=== PATIENT | female | born 1940 | race Caucasian/White ===

== ENCOUNTER 2021-05-09 17:40 | Observation (INO) | payer MEDICARE, MEDICAID, SELFPAY ==
[2021-05-09] VITALS (11 sets, daily range): BP systolic 105–158; BP diastolic 54–73; PULSE 63–77; RESP 16–20; TEMP 36.5–36.9; O2SAT 92–100; BMI 25.7; BMI 22.0
--- NOTE | 2021-05-09 18:32 | HMH.EDGENADL ---
ED Disposition Clinical Impression: Weakness Pneumonia Qualifiers: Pneumonia type: due to unspecified organism Laterality: bilateral Lung location: unspecified part of lung Qualified Code(s): J18.9 - Pneumonia, unspecified organism Disposition: Admitted as Observation Condition on Discharge: Fair Referrals: Cory Garibay MD [Primary Care Provider] - - Critical Care Critical Care Time: No Attestation: On 05/09/21, the high probability of a clinically significant, sudden or life threatening deterioration of the following system(s) required my full and direct attention, intervention and personal management. The time I documented below is in addition to time spent performing reported procedures but includes the following listed in this critical care notation. Medical Decision Making - Medical Records Medical records reviewed: Yes: I reviewed the patient's medical records. MR Comment: Fax copies of emergency department record from [facility] reviewed. The patient had extensive work-up including CT scan of chest, head, and abdomen. Arterial blood gases. Standard laboratory work-up. CT scan of chest showed persistent extensive bilateral infiltrates, mildly improved from prior studies. Abdomen was unremarkable, possible enteritis. CT scan of head was nonacute. Laboratory work-up was unremarkable. WBC normal. Lactic acid normal. Discharged on doxycycline. - Stan Inquiry Pt receiving controlled substance: No Vital Signs: 05/09/21 17:42 05/09/21 18:30 Temperature 97.7 F Temperature Source Oral Pulse Rate 71 Pulse Rate [Right Radial] 76 Respiratory Rate 20 17 Blood Pressure 129/71 Blood Pressure [Right Arm] 125/70 Blood Pressure Mean 90 Blood Pressure Mean [Right Arm] 88 Blood Pressure Source [Right Arm] Automatic Cuff Blood Pressure Position [Right Arm] Sitting 02 Sat by Pulse Oximetry 92 L 100 Oxygen Delivery Method Room Air - Lab Data Lab Results 05/09/21 20:00: WBC 8.4, RBC 3.97 L, Hgb 11.8 L, Hct 37.6, MCV 94.7, MCH 29.7, MCHC 31.4 L, RDW 13.9, Plt Count 566 H, MPV 8.2, Neut % (Auto) 74.8, Lymph % (Auto) 18.0, [place] % (Auto) 4.7, Eos % (Auto) 1.8, Baso % (Auto) 0.7, Neut # (Auto) 6.3, Lymph # (Auto) 1.5, [place] # (Auto) 0.4, Eos # (Auto) 0.2, Baso # (Auto) 0.1 05/09/21 20:00: Sodium 143, Potassium 3.6, Chloride 101, Carbon Dioxide 35 H, Anion Gap 10.6, BUN 14, Creatinine 0.80, Estimated Creat Clear 46, Estimated GFR 69, Est GFR ( Amer) 83, Glucose 53 L, Calcium 8.8, Total Bilirubin 0.3, AST 39 H, ALT 23, Alkaline Phosphatase 111, Troponin I < 0.01, Total Protein 7.6, Albumin 4.1, Globulin 3.5 H, Albumin/Globulin Ratio 1.2 05/09/21 20:00: Lactate 0.7 Result diagrams: 05/09/21 20:00 05/09/21 20:00 Orders (Tests/Meds): ED MEDICATIONS Generic Name Dose Route Start Last Admin Trade Name Freq PRN Reason Stop Dose Admin Sodium Chloride 1,000 mls @ 100 mls/hr 05/09/21 20:45 Sod Chlor 0.9% 1000ml Bag IV 06/08/21 20:44 .Q10H CORINE Levofloxacin/Dextrose 750 mg in 150 mls @ 100 mls/hr 05/09/21 20:45 Levofloxacin 750mg/150ml Premix IV 05/23/21 20:44 Q24H CORINE ORDERS Category Date Time Status Rapid PCR Covid and Flu A/B Stat Lab 05/09/21 20:36 Ordered Troponin I Q3H Lab 05/09/21 23:00 Ordered Troponin I Q3H Lab 05/10/21 00:45 Ordered UA [Urinalysis and Microscopic] Stat Lab 05/09/21 20:24 Ordered Blood Culture Stat Micro 05/09/21 18:40 Ordered - ECG Data Tracing #1 EKG interpreted by Kwame Martin MD: Rhythm: sinus Rate: 83 [place]: normal Ectopy: none Conduction: normal ST Segment Changes: none T Wave Changes: none Q Waves: none No evidence of acute ischemia or injury - Physician Consults Physician Consulted: David Time: 20:34 Reason -: Admission Comment/Response: Agrees to admit the patient to the hospital. We discussed the patient's clinical information, including history, exam, laboratory and radiology
--- NOTE | 2021-05-09 18:41 | XR_ITS ---
PROCEDURE INFORMATION: Exam: XR Chest Exam date and time: 05/09/2021 6:41 PM Age: 80 years old Clinical indication: Cough and shortness of breath; Additional info: SOA, cough TECHNIQUE: Imaging protocol: XR of the chest. Views: 1 view. COMPARISON: ABDPELW/O CT ABD PELVIS W/O CONTRAST 03/21/2015 4:31 PM FINDINGS: Lungs: 1.7 cm nodule in the left upper lobe. Emphysema. Prominent interstitial markings most pronounced in the right lung could reflect interstitial pneumonia. Pleural spaces: Unremarkable. No pleural effusion. No pneumothorax. Heart/Mediastinum: Unremarkable. No cardiomegaly. Bones/joints: Unremarkable. IMPRESSION: 1.7 cm nodule in the left upper lobe. Recommend CT to further evaluate these findings. Prominent interstitial markings most pronounced in the right lung could reflect interstitial pneumonia.
--- NOTE | 2021-05-09 19:51 | PC.NURSE ---
attempted multiple times to obtain blood via iv venipuncture. 24 g placed to right hand.
--- NOTE | 2021-05-09 19:56 | ECG_ITS ---
APPROVED REPORT Exam: Resting ECG HR:83 bpm ECG Measurements Heart Rate 83 AXES NM 122 P 66 QRSd 74 QRS 80 QT 384 T 74 QTc 451 Conclusion Normal sinus rhythm Normal ECG Electronically signed by : Greyson Bishop MD 05/10/2021 10:52:37
[2021-05-09 20:12] LABS: Basophils # 0.1 K/mm3 (0-0.2); Basophils % 0.7 % (0.1-2.0); Eosinophils # 0.2 K/mm3 (0.0-0.4); Eosinophils % 1.8 % (0.1-12.0); Hematocrit 37.6 % (37.0-47.0); Hemoglobin 11.8 g/dL (12.2-16.2); Lymphocytes # 1.5 K/mm3 (0.7-4.5); Mean Corpuscular HGB Conc 31.4 g/dL (31.8-35.4); Mean Corpuscular Hemoglobin 29.7 pg (27.0-31.2); Mean Corpuscular Volume 94.7 fl (81-99); Mean Platelet Volume 8.2 fl (7.4-10.4); Monocytes # 0.4 K/mm3 (0.1-1.0); Monocytes % 4.7 % (1.7-9.3); Neutrophils # 6.3 K/mm3 (1.8-7.8); Neutrophils % 74.8 % (37.0-80.0); Platelet Count 566 K/mm3 (142-424); Red Blood Count 3.97 M/mm3 (4.20-5.40); Red Cell Distribution Width 13.9 % (11.5-17.5); White Blood Count 8.4 K/mm3 (4.8-10.8)
[2021-05-09 20:22] LABS: Lactic Acid 0.7 mmol/L (0.7-2.1)
[2021-05-09 20:23] LABS: Alanine Aminotransferase 23 U/L (12-78); Albumin Level 4.1 g/dl (3.5-5.0); Albumin/Globulin Ratio 1.2 (1.1-1.8); Alkaline Phosphatase 111 U/L (38-126); Anion Gap 10.6 mEq/L (5-15); Aspartate Amino Transferase 39 U/L (14-36); Bilirubin,Total 0.3 mg/dl (0.2-1.3); Blood Urea Nitrogen 14 mg/dl (7-17); Calcium 8.8 mg/dl (8.4-10.2); Carbon Dioxide 35 mmol/L (22.0-30.0); Chloride 101 mmol/L (98-107); Creatinine Clearance Estimated 46 mL/min (50-200); Estimated Glomerular Filt Rate 69 ml/min (>60); GFR (African American) 83 ML/MIN (>60); Globulin 3.5 g/dL (1.3-3.2); Glucose 53 mg/dl (74-100); Potassium 3.6 mmoL/L (3.5-5.1); Sodium 143 mmol/L (136-145); Total Protein,Serum 7.6 g/dl (6.3-8.2)
[2021-05-09 20:35] LABS: Troponin I < 0.01 ng/ml (0.00-0.034)
--- NOTE | 2021-05-09 20:35 | PC.NURSE ---
call placed to [facility] for bed assignment. dta placed. was advised would be contacted back due to floor status being busy
[2021-05-09 21:00] LABS: Coronavirus 19, PCR Not Detected (NotDetected); Influenza A, PCR Not Detected (NotDetected); Influenza B, PCR Not Detected (NotDetected)
[2021-05-09 21:02] LABS: Microscopic, Urine URINE MICROSCOPIC (MICROSCOPIC)
[2021-05-09 21:03] LABS: Appearance,Urine CLEAR (Clear); Bilirubin,Urine Negative (Negative); Blood, Urine Negative (Negative); Color,Urine YELLOW (Yellow); Glucose,Urine (UA) Negative (Negative); Ketones,Urine Negative (Negative); Leukocyte Esterase,Urine Negative (Negative); Nitrate,Urine Negative (Negative); Protein,Urine Negative (Negative); Urobilinogen,Urine 0.2 EU/dl (0.2)
--- NOTE | 2021-05-09 21:15 | PC.NURSE ---
pt's daughter had to leave, she left her phone number as she is the emergency contact. Zeynep Guzman: [phone]
--- NOTE | 2021-05-09 21:18 | PC.NURSE ---
received bed assignment via [facility]; call placed to sacha in registration at this time.
[2021-05-09 21:23] LABS: Bacteria,Urine Trace /lpf; Squamous Epithelial Cell,Urine Occasional #/hpf (0-5); WBC,Urine Occasional #/hpf (0-3)
--- NOTE | 2021-05-09 21:23 | PC.NURSE ---
Pt's labs revealed a 53 BG. FS was 58. Pt is A&O and able to tolerated oral intake. Pt given 2 cups of OJ and PB crackers.
--- NOTE | 2021-05-09 21:54 | PC.NURSE ---
recheck FS was 106
--- NOTE | 2021-05-09 21:56 | PC.NURSE ---
PT ARRIVED TO FLOOR VIA W/C FROM ED W/STAFF AT [id number]
[2021-05-09 21:58] LABS: POC Glucose,Bedside 58 (70-110)
[2021-05-09 21:58] LABS: POC Glucose,Bedside 106 (70-110)
[2021-05-09 23:57] LABS: Troponin I < 0.01 ng/ml (0.00-0.034)
[2021-05-10] VITALS (7 sets, daily range): BP systolic 104–129; BP diastolic 37–64; PULSE 50–70; RESP 14–17; TEMP 36.4–37.1; O2SAT 90–100; BMI 22.0
[2021-05-10 03:26] LABS: Troponin I < 0.01 ng/ml (0.00-0.034)
[2021-05-10 05:56] LABS: Glucose,Random 38 mg/dL (74-100)
--- NOTE | 2021-05-10 06:11 | PC.NURSE ---
FSBS 41, stat glucose lab draw 38. gave pt orange juice and peanut butter and crackers. notified MD, orders received for 1/2 amp D50 and change IVF's to D5NS
[2021-05-10 06:51] LABS: POC Glucose,Bedside 80 (70-110)
--- NOTE | 2021-05-10 10:00 | HMH.HP ---
*Admission Date: 05/10/21 *History of present illness: History obtained from the patient's daughter. She states that the patient was admitted to [facility] from 04/29/2021 through 05/05/2021. Daughter states she still was not well when she came home. She has been extremely weak ever since discharge. She still has shortness of breath. She took her to her primary care provider in [facility] for post admission follow-up. Primary care nurse practitioner heard crackles in the lungs and sent her to [facility] emergency department by EMS. Daughter states that the nurse practitioner wanted her admitted, but after evaluation in the emergency department in [facility] she was discharged home despite daughter requesting admission. Daughter therefore brings her to our emergency department for a second opinion . Daughter is mostly concerned about how weak the patient is. Daughter states that patient still has a little coughing. Denies fever. No vomiting. She thinks she might of had a little diarrhea. She has had chronic abdominal pain for over a year. She is a former smoker, quit smoking about 6 years ago. She has COPD and is on oxygen at home. She has nebulizer treatments, but has not used any since discharge because she is stubborn . Daughter says that the patient also had Covid about 3 months ago. Daughter says that extended-care facility rehab was discussed at the time of hospital discharge on May 05, but she and patient declined. Daughter states she is there at all times to help watch the patient and since discharge they also have home health care. However, despite all this, daughter still feels that she is not doing well. Fax copies of emergency department record from [facility] reviewed. The patient had extensive work-up including CT scan of chest, head, and abdomen. Arterial blood gases. Standard laboratory work-up. CT scan of chest showed persistent extensive bilateral infiltrates, mildly improved from prior studies. Abdomen was unremarkable, possible enteritis. CT scan of head was nonacute. Laboratory work-up was unremarkable. WBC normal. Lactic acid normal. Discharged on doxycycline. (above as per ER physician) [facility] History I have reviewed the patient's past medical history: Yes Medical History: Reports:: Chronic Obstructive Pulmonary Disease (COPD), Diabetes Mellitus Type 2 *Have you ever received a pneumonia vaccine?: No *Have you received a flu vaccine this season?: No Other Surgeries: Yes: Cholecystectomy, Hysterectomy-Total - *Social History Smoking Status: Former smoker Alcohol Intake: never *Occupational Status:: other *Travel in the last 8 weeks: None Family Hx:: Unable to obtain Review of Systems - Review of Systems Review of systems:: unable to obtain - *Neurologic Reports weakness Meds Home Medications Medication Instructions Recorded Confirmed Type Atorvastatin Calcium [Lipitor 40mg 40 mg PO HS 05/09/21 05/09/21 History Tab] Budesonide/Formoterol Fumarate 2 puffs IH BID 05/09/21 05/09/21 History [Symbicort 160-4.5 Mcg Inhaler] Clopidogrel Bisulfate [Clopidogrel 75 mg PO DAILY 05/09/21 05/09/21 History 75mg Tab] Dicyclomine HCl 20 mg PO QID 05/09/21 05/09/21 History Fluoxetine HCl [Prozac] 40 mg PO DAILY 05/09/21 05/09/21 History Furosemide [Furosemide 80mg Tab] 120 mg PO DAILY 05/09/21 05/09/21 History Gabapentin [Neurontin 800mg Tab] 800 mg PO TID 05/09/21 05/09/21 History Hydrocodone/Acetaminophen 1 tab PO TID PRN 05/09/21 05/09/21 History [Hydrocodone-Acetamin 10-325 mg] Insulin Glargine,Hum.rec.anlog 52 units SQ HS 05/09/21 05/09/21 History [Lantus Insulin 100units/mL 10mL vial] Insulin Regular, Human [Novolin R] 100 unit SQ TID 05/09/21 05/09/21 History Ipratropium/Albuterol Sulfate 2 puff IH QID 05/09/21 05/09/21 History [Combivent Respimat Inh] Meclizine HCl [Antivert 25mg 25 mg PO QID PRN 05/09/21
--- NOTE | 2021-05-10 11:16 | HMH.PHAVTE ---
[facility] Pharmacy VTE Monitoring - Patient Demographics Admission date: 05/09/21 Report Date: 05/10/21 Time: 11:16 Allergies/Adverse Reactions: Patient Allergies iodine Allergy (Unknown, Verified 05/09/21 21:16) I-ITCHING Penicillins Allergy (Unknown, Verified 05/09/21 21:16) I-RASH Sulfa (Sulfonamide Antibiotics) Allergy (Unknown, Verified 05/09/21 21:16) NA-NAUSEA/VOMITING CONTRAST DYE Allergy (Unknown, Uncoded 06/22/17 14:45) I-ITCHING Height: 1.6 m Weight: 56.501 kg Patient Problems: Current Active Problems Pneumonia (Acute) Weakness (Acute) COPD (chronic obstructive pulmonary disease) (Chronic) Hypoglycemia (Acute) - VTE Risk Labs: VTE Related Lab Results Hgb 11.8 g/dL (12.2-16.2) L 05/09/21 20:00 Hct 37.6 % (37.0-47.0) 05/09/21 20:00 Plt Count 566 K/mm3 (142-424) H 05/09/21 20:00 BUN 14 mg/dl (7-17) 05/09/21 20:00 Creatinine 0.80 mg/dl (0.52-1.04) 05/09/21 20:00 Estimated Creat Clear 46 mL/min (50-200) 05/09/21 20:00 VTE Score: 5 VTE Risk Level: Low Risk - Prophylaxis VTE Prophylaxis Ordered?: Yes Types of VTE Prophylaxis: TEDS Knee High Location of Applied Device: Bilateral Lower Extremeties
--- NOTE | 2021-05-10 13:40 | HMH.PHAINT ---
MEDICATION RECONCILIATION COMPLETED ON PATIENT USING EXTERNAL FILL HISTORY FROM PHARMACY. -HARSHA LAWTON, JEWELD
[2021-05-10 14:50] LABS: Thyroid Stimulating Hormone 0.66 uIU/mL (0.465-4.68)
[2021-05-10 15:08] LABS: Vitamin B12 475 pg/mL (239-931)
[2021-05-10 17:28] LABS: POC Glucose,Bedside 186 (70-110)
[2021-05-10 17:28] LABS: POC Glucose,Bedside 146 (70-110)
[2021-05-10 17:28] LABS: POC Glucose,Bedside 161 (70-110)
--- NOTE | 2021-05-10 17:28 | PC.WOUNDNOTE ---
Approx 2x2 open pressure area to R outer ankle,errythema around the edges, small ploymem dot dsg applied. Scant smalls drainage noted when removing prior dsg.
--- NOTE | 2021-05-10 18:59 | PC.NURSE ---
Did speak with daughter this am and give her an update on pt. She stated she planned to call back this evening, I haven't spoke with her this afternoon. Pt has slept a lot this shift. Pt states she just wants to rest. Appetite is poor.CB in reach. Have turned and repositioned, and applied dsg to R ankle. Pt is very [employer] [place] [employer] and has has been alert and oriented x 2 this shift to person and place.
[2021-05-10 19:28] LABS: Adenovirus F 40/41, stool Not Detected (NotDetected); Astrovirus Not Detected (NotDetected); Campylobacter Not Detected (NotDetected); Clostridium Difficile A/B, PCR Not Detected (NotDetected); Cryptosporidium Not Detected (NotDetected); Cyclospora Cayetanesis Not Detected (NotDetected); Entamoeba histolytica Not Detected (NotDetected); Enteroaggregative E coli Not Detected (NotDetected); Enteropathogenic E coli Not Detected (NotDetected); Enterotoxigenic E coli Not Detected (NotDetected); Giardia lamblia Not Detected (NotDetected); Norovirus Not Detected (NotDetected); Plesimonas Shigalloides, PCR Not Detected (NotDetected); Rotavirus A Not Detected (NotDetected); Salmonella, PCR Not Detected (NotDetected); Sapovirus Not Detected (NotDetected); Shiga-like toxin E coli Not Detected (NotDetected); Shigella Enterovasive E coli Not Detected (NotDetected); Vibrio Cholerae Not Detected (NotDetected); Vibrio, PCR Not Detected (NotDetected); Yersinia Entercolitica, PCR Not Detected (NotDetected)
[2021-05-10 22:06] LABS: POC Glucose,Bedside 123 (70-110)
[2021-05-11] VITALS (11 sets, daily range): BP systolic 120–132; BP diastolic 43–69; PULSE 60–88; RESP 15–20; TEMP 36.4–37.1; O2SAT 93–100; BMI 22.5
--- NOTE | 2021-05-11 04:26 | PC.NURSE ---
Addendum entered by Sunshine Bernal RN 05/11/21 04:30: previous shift stated stools were sent, but no order was found. Original Note: pt slept for majority of evening, was more alert towards appliance assembler hours, pt did complain of headache, pt has had loose watery diarrhea stools frequently during shift, stools appear yellow, watery, seedy and foul odor. Stools were sent for cultures on previous shift. pt is a&O x 3
--- NOTE | 2021-05-11 11:05 | P.PN_ITS ---
Internal Medicine - PN: Subj *Date: 05/11/21 *Time: 11:05 Interval history: She is alert and conversant this morning. Vital signs are good. Will pursue disposition in AM. Exam Vital signs and Labs for Last 24 Hours: Temp Pulse Resp BP Pulse Ox 98.2 F 83 20 126/43 L 99 05/11/21 08:00 05/11/21 08:00 05/11/21 08:00 05/11/21 08:00 05/11/21 08:00 Laboratory Results - last 24 hr 05/10/21 02:25: Vitamin B12 475, TSH 0.66 05/10/21 08:18: POC Glucose 186 H 05/10/21 11:33: POC Glucose 146 H 05/10/21 13:54: Stl Aeromonas (PCR) Not detected, Stl C. cayetanensis PCR Not detected, Stool Rotavirus (PCR) Not detected, Stl Adenov F 40/41 PCR Not detected, Stool Astrovirus (PCR) Not detected, Stool Campylobacter PCR Not detected, Stl C.difficile Tox PCR Not detected, Stool Cryptosporidium PCR Not detected, Stl E.coli Shiga Tox PCR Not detected, Stool E coli O157 PCR Not detected, Stl Enterotoxigenic E PCR Not detected, Stool EPEC (PCR) Not detected, Stool EAEC (PCR) Not detected, Stl E. histolytica PCR Not detected, Stool Giardia Lamblia PCR Not detected, Stool Salmonella PCR Not detected, Stool Sapovirus (PCR) Not detected, Stl P. shigelloides PCR Not detected, Stl Shigell a/EIEC PCR Not detected, St Y.enterocolitica PCR Not detected, Stool Vibrio (PCR) Not detected, Stl Vibrio cholerae PCR Not detected, Stl Norovirus GI/GII PCR Not detected 05/10/21 15:41: POC Glucose 161 H 05/10/21 21:45: POC Glucose 123 H I & O for Last 24 hours: Intake & Output 05/08/21 05/09/21 05/10/21 05/11/21 11:59 11:59 11:59 10:59 Intake Total 100 / 100 180 / 180 Output Total 1 / Balance 100 / 100 179 / 179 Weight 124 lb 9 oz 127 lb 4 oz - Constitutional no acute distress - *Routine HEENT Exam Head: Present: normocephalic Eye: Present: EOMI, PERRL ENT: Present: mucous membranes moist - *Routine Neck Exam Present: supple. Absent: lymphadenopathy - *Routine Respiratory Exam Present: rales (bibasilar) - *Routine Abdominal Exam Present: soft, normoactive bowel sounds. Absent: tenderness - *Routine Extremities Exam Present: edema (minimal). Absent: cyanosis, clubbing Assessment and Plan (1) Pneumonia Status: Acute Qualifiers: Pneumonia type: due to unspecified organism Laterality: bilateral Lung location: unspecified part of lung Qualified Code(s): J18.9 - Pneumonia, unspecified organism Category: Medical Code(s): J18.9 - Pneumonia, unspecified organism (2) Weakness Status: Acute Category: Medical Code(s): R53.1 - Weakness (3) Hypoglycemia Status: Acute Category: Medical Code(s): E16.2 - Hypoglycemia, unspecified (4) COPD (chronic obstructive pulmonary disease) Status: Chronic Category: Medical Code(s): J44.9 - Chronic obstructive pulmonary disease, unspecified
[2021-05-11 14:47] LABS: Basophils % 0.6 % (0.1-2.0); Eosinophils # 0.2 K/mm3 (0.0-0.4); Eosinophils % 3.2 % (0.1-12.0); Hematocrit 33.5 % (37.0-47.0); Hemoglobin 10.2 g/dL (12.2-16.2); Lymphocytes # 1.3 K/mm3 (0.7-4.5); Lymphocytes % 20.8 % (10-50); Mean Corpuscular HGB Conc 30.3 g/dL (31.8-35.4); Mean Corpuscular Hemoglobin 29.9 pg (27.0-31.2); Mean Corpuscular Volume 98.5 fl (81-99); Monocytes # 0.4 K/mm3 (0.1-1.0); Neutrophils # 4.2 K/mm3 (1.8-7.8); Neutrophils % 68.3 % (37.0-80.0); Platelet Count 344 K/mm3 (142-424); Red Cell Distribution Width 13.7 % (11.5-17.5); White Blood Count 6.2 K/mm3 (4.8-10.8)
[2021-05-11 15:29] LABS: Chloride 108 mmol/L (98-107); Sodium 143 mmol/L (136-145)
[2021-05-11 15:30] LABS: Potassium 4.8 mmoL/L (3.5-5.1)
[2021-05-11 15:32] LABS: Blood Urea Nitrogen 3 mg/dl (7-17); Creatinine Clearance Estimated 40 mL/min (50-200); Estimated Glomerular Filt Rate 118 ml/min (>60); GFR (African American) 143 ML/MIN (>60)
[2021-05-11 15:33] LABS: Anion Gap 13.8 mEq/L (5-15); Carbon Dioxide 26 mmol/L (22.0-30.0); Glucose 250 mg/dl (74-100)
--- NOTE | 2021-05-11 20:05 | PC.NURSE ---
Pt has rested well most of shift. Pt up to chair and did get anxious when daughter came to visit. Pts daughter asked about pt's fentanyl patch and stated she had one she could give her. This RN explained that no order was in for patch, and made Dr. Hernandez aware. Dr. Hernandez didn't order fentanyl patch, at this time, because of how pts mental status has been this hospital visit. CB in reach. VSS. Meds given per sep. Pt confused and is only alert to self and place, she is unaware of time and who the president is. She did know daughter when she visited this evening. Chair/ bed alarm in place for safety.
[2021-05-11 22:04] LABS: POC Glucose,Bedside 144 (70-110)
[2021-05-11 22:04] LABS: POC Glucose,Bedside 172 (70-110)
[2021-05-11 22:25] LABS: POC Glucose,Bedside 174 (70-110)
[2021-05-12] VITALS (9 sets, daily range): BP systolic 91–128; BP diastolic 31–51; PULSE 50–71; RESP 16–20; TEMP 36.7–36.9; O2SAT 97–100; BMI 22.3; BMI 22.2
[2021-05-12 06:40] LABS: POC Glucose,Bedside 206 (70-110)
--- NOTE | 2021-05-12 08:29 | HMH.ACPN2 ---
Internal Medicine - PN: Subj *Date: 05/12/21 *Time: 08:29 Interval history: Patient states that she does feel a lot better today. She frequently mentions her pain patch. States she is breathing well. She set up in the chair yesterday. She has not walked. She is eating as usual without problems. Patient is extremely hard of hearing Exam Vital signs and Labs for Last 24 Hours: Temp Pulse Resp BP Pulse Ox 98.2 F 71 20 109/51 L 98 05/12/21 08:00 05/12/21 08:00 05/12/21 08:00 05/12/21 08:00 05/12/21 08:00 Laboratory Results - last 24 hr 05/11/21 11:53: POC Glucose 144 H 05/11/21 14:35: WBC 6.2 D, RBC 3.40 L, Hgb 10.2 L, Hct 33.5 L, MCV 98.5, MCH 29.9, MCHC 30.3 L, RDW 13.7, Plt Count 344 D, MPV 8.0, Neut % (Auto) 68.3, Lymph % (Auto) 20.8, [place] % (Auto) 7.0, Eos % (Auto) 3.2, Baso % (Auto) 0.6, Neut # (Auto) 4.2, Lymph # (Auto) 1.3, [place] # (Auto) 0.4, Eos # (Auto) 0.2, Baso # (Auto) 0.0 05/11/21 14:35: Sodium 143, Potassium 4.8 D, Chloride 108 H, Carbon Dioxide 26, Anion Gap 13.8, BUN 3 L D, Creatinine 0.50 L D, Estimated Creat Clear 40, Estimated GFR 118, Est GFR ( Amer) 143 D, Glucose 250 H, Calcium 8.0 L 05/11/21 16:17: POC Glucose 172 H 05/11/21 21:55: POC Glucose 174 H 05/12/21 05:36: POC Glucose 206 H I & O for Last 24 hours: Intake & Output 05/09/21 05/10/21 05/11/21 05/12/21 12:59 12:59 11:59 11:59 Intake Total 480 / 480 Output Total Balance 480 / 480 Weight 126 lb Microbiology Reports for the Last 24 Hours: Microbiology 05/09/21 20:00 Blood Blood Culture - Preliminary NO GROWTH AFTER 48 HOURS - Constitutional no acute distress Comments: Assist with exam - *Routine Respiratory Exam Present: crackles Comments: Right crackles - *Routine Cardiovascular Exam Present: RRR - *Routine Abdominal Exam Present: soft, normoactive bowel sounds. Absent: tenderness - *Routine Extremities Exam Absent: edema, calf tenderness Comments: States her right ankle hurts. Open area on the right at outer ankle - *Routine Neurological Exam Present: alert, oriented X3 Assessment and Plan (1) Pneumonia Status: Acute Qualifiers: Pneumonia type: due to unspecified organism Laterality: bilateral Lung location: unspecified part of lung Qualified Code(s): J18.9 - Pneumonia, unspecified organism Category: Medical Code(s): J18.9 - Pneumonia, unspecified organism (2) Weakness Status: Acute Category: Medical Code(s): R53.1 - Weakness (3) Hypoglycemia Status: Acute Category: Medical Code(s): E16.2 - Hypoglycemia, unspecified (4) COPD (chronic obstructive pulmonary disease) Status: Chronic Category: Medical Code(s): J44.9 - Chronic obstructive pulmonary disease, unspecified (5) Altered mental status Status: Acute Category: Medical Code(s): R41.82 - Altered mental status, unspecified - Assessment and plan all Dx Assessment and Plan for all problems:: Continue with current pulmonary care with katt Zeng.
--- NOTE | 2021-05-12 10:46 | HMH.OTEV ---
OT Inpatient Evaluation Rehab OT IP Evaluation Start: 05/12/21 08:58 Freq: ONCE Status: Complete Protocol: Document 05/12/21 10:42 [facility] (Rec: 05/12/21 10:46 [facility] [id number]) Rehab OT IP Assessment Subjective History Pt oriented x 3 on arrival. Pt agreeable to engage in therapy evaluation. Pt was admitted on 05/09/21 due to continued weakness. Pt has a past medical history of Chronic Obstructive Pulmonary Disease (COPD), Diabetes Mellitus Type 2. Pt reports prior to being in the hosptial she lived in an apartment with her daughter. Pt claims she was independent with dressing, sponge bathing, and feeding. However, she was dependent upon her daughter to complete all IADLs. Pt did use a rollator during ambulation. Subjective My daughter does a lot for me . Objective Patient Orientation Person,Place,Birthday Upper Extremity Gross ROM Min Limitation <25% Shoulder ROM Limitations Muscle Weakness Elbow ROM Limitations Muscle Weakness Wrist Limitations of Range of Motion Muscle Weakness Bed Mobility bed mobility-scooting,bed mobility - supine/sit,bed mobility - rolling Assist Level Contact Guard/Hand Hold Transfer Training Sit/Stand Transfer Assist Level Contact Guard/Hand Hold Overall Commode/Toilet Transfer Ability Assistance x1 Commode/Toilet Transfer Technique Stand Step Pivot Rehab OT IP prob,goals,plan Problems Date of Evaluation: 05/12/21 OT IP Problems Bed Mobility,Transfers,Gait, Balance,Self care,Safety Rehab Potential Rehab Potential Good Equipment Needs Assistive Devices Rolling / Wheeled Walker Plan OT intervention Plan Bed Mobility,Transfers,Gait, Balance,Self care,Safety, Therapeutic Exercise OT Plan Frequency BID Duration LOS Discharge Goals Bed Mobility Ability Standby Assistance Sit to Stand Chair Transfer Ability Supervision/Stand by,Contact Guard/Hand Hold Chair Transfer Ability Supervision/St
--- NOTE | 2021-05-12 11:29 | HMH.PTEV ---
Physical Therapy Evaluation Rehab PT IP Evaluation Start: 05/12/21 08:58 Freq: ONCE Status: Active Protocol: Document 05/12/21 10:00 [facility] (Rec: 05/12/21 11:29 PHORNE [id number]) Subjective/History History History 80 yowf adm to [facility] with PNA and COPD exac. She reports living with family, no steps to enter the home and using a RW for ambulation at baseline. Subjective Subjective Pt c/o foot and leg pain, but offers no specifics. Rehab PT IP Eval Objective Appearance Patient Behavior Appropriate Patient Orientation Person,Place Difficulty following instructions none Speech Pattern Clear Ambulation Patient Able to Ambulate Yes Ambulation Observation IP General Gait Pattern Observation Wide Based Gait Ambulation Distance (feet) 20 Ambulation Assistive Device Rolling Walker Ambulation Ability Contact Guard/Hand Hold Balance Ability to Arise Able, uses arms to help Sitting Balance Steady, safe Standing Balance Steady, wide stance Dynamic Sitting Balance Ability Good Dynamic Standing Balance Ability Fair Transfers Bed Transfer Ability Contact Guard/Hand Hold Chair Transfer Ability Contact Guard/Hand Hold Sit to Stand Bed Transfer Ability Contact Guard/Hand Hold Sit to Stand Chair Transfer Ability Contact Guard/Hand Hold ROM All Extremities PT ROM Status WFL Rehab PT IP prob,goals,plan Problems Date of Evaluation: 05/12/21 PT IP Problems Bed Mobility,Transfers,Gait Rehab Potential Rehab Potential Good Plan PT Intervention Plan Bed Mobility,Transfers,Gait, Therapeutic Exercise PT Plan Frequency BID Duration LOS Discharge Goals Bed Transfer Ability Supervision/Stand by Sit to Stand Chair Transfer Ability Supervision/Stand by Ambulation Assistive Device Rolling Walker Ambulation Distance (feet) 40 Discharge Plan PT Discharge Plan Pt is appropriate to return home once medically stable in she has assistance available at home for ADLs. G -code Required No Eval Complexity Eval Charge Codes 91784 - Moderate Complexity PHYSICIAN CERTIFICATION: I certify the specified therapy services for Janet Guzman are required, authorized, and reviewed every 30 days.
--- NOTE | 2021-05-12 11:54 | SW/DCPLANNER ---
I spoke with patients son regarding plans once patient is medically stable for discharge. Son stated that he is interested in placement for this patient but patient would not be agreeable and patient lives with her daughter. Son and daughter do not get along. Son was interested in APS referral due to living with daughter and her not caring for her. Son stated that three weeks ago patient was admitted to [facility] and APS referral was made but did not meet criteria. I did informed son of Central Intake phone number and directions to make a report. PT/OT evaluation was completed and stated that patient was safe to return home at time of discharge. I contacted patients daughter (Zeynep Sutton) and she stated that patient does well at home. Patient is currently established with [facility] (this will be resumed at discharge) and has all appropriate DME (walker, wheelchair, cane, bedside commode and hospital bed. I will follow up with MD and patients family once patient is medically stable for discharge. Daughter stated that she will be able to transport patient home once medically stable.
--- NOTE | 2021-05-12 12:47 | HMH.PTWOUND ---
Rehab Inpt Wound Evaluation Rehab IP Wound Evaluation Start: 05/12/21 12:43 Freq: Status: Active Protocol: Document 05/12/21 12:43 BRAD (Rec: 05/12/21 12:46 BRAD [id number]) Rehab PT Wound Assessment Patient Status Premedicated Prior to Dressing Change No Subjective Subjective Pt reprots wound has caused her whole leg to hurt up to the knee Wound Right Lateral Ankle Wound Type Abrasion Wound Length (cm) 1.0 Wound Width (cm) 1.0 Wound Bed Appearance Yellow,Slough Percentage of Slough (%) 100 Percentage of Eschar (Yellow) (%) 100 Wound Margins Description Well Defined Surrounding Tissue Appearance [place] Surrounding Tissue Temperature Warm Wound Drainage Description None Drainage Amount None Drainage Odor No Odor Dressing Status Open to Air Wound Topical Solution/Irrigant Antibiotic Irrigant Primary Dressing Absorbant Pad Comment polymem dot Wound Debridement Method Gauze Wound Debridement Amount of Tissue Minimal Removed Wound Debridement Result Patient Unable to Tolerate Dressing Change Date 05/12/21 Dressing Change Patient Tolerance Tolerated Poorly Plan/Recommendation Comment Wound care to continue to follow pt while in [facility] - Pt would benefit from HH wound care or OP wound care once dc' d from [facility]. Eval Complexity Eval Charge Codes 85407 - Low Complexity G-codes PT Current Status Other PT/OT Status PT Current Status Modifier CN-At least 100% impaired, limited or restricted PT Goal Status Other PT/OT Status PT Goal Status Modifer CN-At least 100% impaired, limited or restricted PHYSICIAN CERTIFICATION: I certify the specified therapy services for Janet Guzman are required, authorized, and reviewed every 30 days.
--- NOTE | 2021-05-13 15:52 | HMH.DCSUM ---
General - General Admission date:: 05/09/21 Discharge date: 05/12/21 HPI HPI: History obtained from the patient's daughter. She states that the patient was admitted to [facility] from 04/29/2021 through 05/05/2021. Daughter states she still was not well when she came home. She has been extremely weak ever since discharge. She still has shortness of breath. She took her to her primary care provider in [facility] for post admission follow-up. Primary care nurse practitioner heard crackles in the lungs and sent her to [facility] emergency department by EMS. Daughter states that the nurse practitioner wanted her admitted, but after evaluation in the emergency department in [facility] she was discharged home despite daughter requesting admission. Daughter therefore brings her to our emergency department for a second opinion . Daughter is mostly concerned about how weak the patient is. Daughter states that patient still has a little coughing. Denies fever. No vomiting. She thinks she might of had a little diarrhea. She has had chronic abdominal pain for over a year. She is a former smoker, quit smoking about 6 years ago. She has COPD and is on oxygen at home. She has nebulizer treatments, but has not used any since discharge because she is stubborn . Daughter says that the patient also had Covid about 3 months ago. Daughter says that extended-care facility rehab was discussed at the time of hospital discharge on May 05, but she and patient declined. Daughter states she is there at all times to help watch the patient and since discharge they also have home health care. However, despite all this, daughter still feels that she is not doing well. Fax copies of emergency department record from [facility] reviewed. The patient had extensive work-up including CT scan of chest, head, and abdomen. Arterial blood gases. Standard laboratory work-up. CT scan of chest showed persistent extensive bilateral infiltrates, mildly improved from prior studies. Abdomen was unremarkable, possible enteritis. CT scan of head was nonacute. Laboratory work-up was unremarkable. WBC normal. Lactic acid normal. Discharged on doxycycline. (above as per ER physician) Hospital Course Hospital Course: The patient was admitted. Her chest x-ray showed prominent interstitial markings most pronounced in the right lung possibly reflecting a pneumonia. She was started on antibiotics. She did not awake with history and physical exam. Her glucose has been low initially, but was rechecked and was in the 180s. It was felt some of her medications would need to be held due to sedation. Dr. Perry made medication adjustments. By 05/11/2021, the patient was alert and conversant. By 05/12/2021, she felt much better and had been up in a chair. She was eating without problems but had not been up walking. Her blood cultures returned showing no growth. Care management was consulted for discharge plans. The patient's son was interested in placement, but the patient was not agreeable. The patient lives with her daughter. PT and OT saw the patient and felt she was safe to return home. She was stable for discharge. Objective Vital signs: Temp Pulse Resp BP Pulse Ox 98.5 F 67 16 128/48 L 97 05/12/21 15:07 05/12/21 15:07 05/12/21 15:07 05/12/21 15:07 05/12/21 15:07 Narrative: - Constitutional no acute distress Comments: Assist with exam - *Routine Respiratory Exam Present: crackles Comments: Right crackles - *Routine Cardiovascular Exam Present: RRR - *Routine Abdominal Exam Present: soft, normoactive bowel sounds. Absent: tenderness - *Routine Extremities Exam Absent: edema, calf tenderness Comments: States her right ankle hurts. Open area on the right at outer ankle - *Routine Neurological Exam Present: alert, oriented X3 Results Labs on day of discharge: Pr
== END 2021-05-12 16:15 | disposition home or self-care (01) ==
LOC: ER 20:36 → 2ND 21:48
PROVIDERS: Emergency Medicine; Family Medicine; Admitting Provider Family Medicine; Emergency Provider Emergency Medicine; PCP Family Medicine; Visit Provider Family Medicine
DX: J18.9 Pneumonia, unspecified organism (principal); J44.9 Chronic obstructive pulmonary disease, unspecified; Z99.81 Dependence on supplemental oxygen; Z20.822 Contact with and (suspected) exposure to COVID-19; E11.9 Type 2 diabetes mellitus without complications; Z79.899 Other long term (current) drug therapy; Z79.4 Long term (current) use of insulin
CPT/HCPCS: G0378; 36415; 71045; 80048; 80053; 81001; 82607; 82947; 82962; 83605; 84443; 84484; 85025; 87040; 87506; 93005; 94640; 94760; 94761; 96365; 97110; 97162; 97166; 99284; C9803; J1956; U0003; U0005

== ENCOUNTER → 2021-06-23 12:50 | Outpatient (CLI) | payer MEDICARE, MEDICAID, SELFPAY ==
[2021-06-23 14:00] VITALS: PULSE 85; PULSE 89
== END ==
PROVIDERS: PCP Family Medicine; Visit Provider Internal Medicine Pulmonary Disease
DX: R06.09 Other forms of dyspnea (principal)
CPT/HCPCS: 94060; 94640; 94727; 94729

== ENCOUNTER 2022-01-20 02:41 | Emergency (ER) | payer MEDICARE, MEDICAID, SELFPAY ==
[2022-01-20] VITALS (7 sets, daily range): BP systolic 115–142; BP diastolic 54–78; PULSE 48–57; RESP 16–18; TEMP 36.9; O2SAT 95–97; BMI 23.4
--- NOTE | 2022-01-20 02:54 | XR_ITS ---
PROCEDURE INFORMATION: Exam: XR Left Hip Exam date and time: 01/20/2022 3:20 AM Age: 81 years old Clinical indication: Injury or trauma; Fall; Blunt trauma (contusions or hematomas); Left; Hip; Prior surgery; Surgery date: 6+ months TECHNIQUE: Imaging protocol: Radiologic exam of the Left hip. Views: 2 or 3 views hip with pelvis when performed. COMPARISON: CT CHEST ABD PEL WO 05/23/2021 5:14 PM FINDINGS: Bones/joints: The patient is status post prior ORIF with 3 screws extending through the left femur and into the femoral head. No acute fracture or dislocation. Soft tissues: Unremarkable. IMPRESSION: No acute fracture or dislocation.
--- NOTE | 2022-01-20 02:54 | XR_ITS ---
PROCEDURE INFORMATION: Exam: XR Chest Exam date and time: 01/20/2022 3:19 AM Age: 81 years old Clinical indication: Injury or trauma; Fall; Blunt trauma (contusions or hematomas) TECHNIQUE: Imaging protocol: Radiologic exam of the chest. Views: 1 view. COMPARISON: CT CHEST ABD PEL WO 05/23/2021 5:14 PM FINDINGS: Lungs: Chronic interstitial changes are present. The patient is hyperinflated. Pleural spaces: Unremarkable. No pleural effusion. No pneumothorax. Heart/Mediastinum: Unremarkable. No cardiomegaly. Bones/joints: Unremarkable. Soft tissues: Mass is again seen in the left mid chest. IMPRESSION: Superior segment left lower lobe mass.
--- NOTE | 2022-01-20 02:54 | CT_ITS ---
PROCEDURE INFORMATION: Exam: CT Lumbar Spine Without Contrast Exam date and time: 01/20/2022 3:44 AM Age: 81 years old Clinical indication: Injury or trauma; Fall; Blunt trauma (contusions or hematomas); Injury date: 01/20/22 TECHNIQUE: Imaging protocol: Computed tomography of the lumbar spine without contrast. Radiation optimization: All CT scans at this facility use at least one of these dose optimization techniques: automated exposure control; mA and/or kV adjustment per patient size (includes targeted exams where dose is matched to clinical indication); or iterative reconstruction. COMPARISON: PET CT Skull Base to [facility] 06/20/2021 10:59 AM FINDINGS: Bones/joints: The patient is diffusely osteopenic. No acute fracture or dislocation is identified. Mild hypertrophic changes of the posterior facets are present bilaterally. Discs/Spinal canal/Neural foramina: No significant disc protrusion. No severe spinal canal stenosis. No significant neural foraminal narrowing. Vasculature: Diffuse aortic calcifications Soft tissues: Unremarkable. IMPRESSION: No acute injury identified.
--- NOTE | 2022-01-20 02:54 | CT_ITS ---
PROCEDURE INFORMATION: Exam: CT Cervical Spine Without Contrast Exam date and time: 01/20/2022 3:35 AM Age: 81 years old Clinical indication: Injury or trauma; Fall; Blunt trauma; Injury date: 01/20/22 TECHNIQUE: Imaging protocol: Computed tomography of the cervical spine without contrast. Radiation optimization: All CT scans at this facility use at least one of these dose optimization techniques: automated exposure control; mA and/or kV adjustment per patient size (includes targeted exams where dose is matched to clinical indication); or iterative reconstruction. COMPARISON: PET [facility] Skull [facility] to [facility] 06/20/2021 10:59 AM FINDINGS: Bones/joints: Moderate dextroconvex curvature. Vertebral body height and AP alignment is preserved. Nonspecific sclerosis involving C4. Mild degenerative change about the dens. Mild prevertebral osteophytosis. Low-level facet joint degenerative change. No acute cervical spine fracture. There are small sclerotic foci involving the posterior elements of C5, C7 and T1. Discs/Spinal canal/Neural foramina: No significant disc protrusion. No severe spinal canal stenosis. No significant neural foraminal narrowing. Lungs: Lung apices are normal. Vasculature: Vascular calcification. Soft tissues: Unremarkable. IMPRESSION: 1. No acute cervical spine fracture. 2. Sclerosis involving the C4 vertebral body. Additional small sclerotic foci involving the posterior elements of C5, C7 and T1. Sclerotic metastatic disease not excluded.
--- NOTE | 2022-01-20 02:54 | CT_ITS ---
PROCEDURE INFORMATION: Exam: CT Head Without Contrast Exam date and time: 01/20/2022 3:35 AM Age: 81 years old Clinical indication: Injury or trauma; Fall; Blunt trauma (contusions or hematomas); Consciousness not specified; Injury date: 01/20/22 TECHNIQUE: Imaging protocol: Computed tomography of the head without contrast. Radiation optimization: All CT scans at this facility use at least one of these dose optimization techniques: automated exposure control; mA and/or kV adjustment per patient size (includes targeted exams where dose is matched to clinical indication); or iterative reconstruction. COMPARISON: PET CT Skull Base to [facility] 06/20/2021 10:59 AM FINDINGS: Brain: Mild age-related volume loss. No acute intracranial hemorrhage, midline shift or intracranial mass effect. Cerebral ventricles: No hydrocephalus. Paranasal sinuses: Visualized sinuses are unremarkable. No fluid levels. Mastoid air cells: Visualized mastoid air cells are well aerated. Bones/joints: No acute calvarial fracture. Soft tissues: Unremarkable. IMPRESSION: No acute intracranial abnormality.
--- NOTE | 2022-01-20 02:54 | CT_ITS ---
PROCEDURE INFORMATION: Exam: CT Thoracic Spine Without Contrast Exam date and time: 01/20/2022 3:40 AM Age: 81 years old Clinical indication: Injury or trauma; Fall; Blunt trauma (contusions or hematomas); Injury date: 01/20/22 TECHNIQUE: Imaging protocol: Computed tomography of the thoracic spine without contrast. Radiation optimization: All CT scans at this facility use at least one of these dose optimization techniques: automated exposure control; mA and/or kV adjustment per patient size (includes targeted exams where dose is matched to clinical indication); or iterative reconstruction. COMPAR[facility] 06/20/2021 10:59 AM FINDINGS: Bones/joints: Moderately severe kyphosis is present. The patient is diffusely osteopenic. Discs/Spinal canal/Neural foramina: No significant disc protrusion. No severe spinal canal stenosis. No significant neural foraminal narrowing. Soft tissues: There is a rounded soft tissue mass within the left mid chest measuring 3.5 by 3.1 cm, increased from 2.1 x 1.7 cm on 06/20/2021. IMPRESSION: 1. No bony fracture or dislocation noted. 2. 3.5 cm mass within the superior segment of the left lower lobe increased from prior PET CT 06/20/2021.
--- NOTE | 2022-01-20 02:56 | ECG_ITS ---
APPROVED REPORT Exam: Resting ECG HR:53 bpm ECG Measurements Heart Rate 53 AXES OH 136 P 235 QRSd 85 QRS 229 QT 445 T 240 QTc 427 Conclusion SINUS BRADYCARDIA VOLTAGE CRITERIA FOR LVH [MEETS CRITERIA IN ONE OF: R(aVL), S(V1), R(V5), R(V5/V6)+S(V1)] POSSIBLE SEPTAL MYOCARDIAL INFARCTION , OF INDETERMINATE AGE [30 ms Q WAVE IN V1/V2] LATERAL MYOCARDIAL INFARCTION , OF INDETERMINATE AGE [40+ ms Q WAVE AND/OR ST/T ABNORMALITY IN I/aVL/V5/V6] INFERIOR MYOCARDIAL INFARCTION , OF INDETERMINATE AGE [40+ ms Q WAVE AND/OR ST/T ABNORMALITY IN II/aVF] ABNORMAL ECG UNCONFIRMED REPORT Electronically signed by : Greyson Bishop MD 01/21/2022 21:04:36
[2022-01-20 03:26] LABS: Basophils % 0.5 % (0.1-2.0); Eosinophils # 0.2 K/mm3 (0.0-0.4); Eosinophils % 3.1 % (0.1-12.0); Hemoglobin 12.9 g/dL (12.2-16.2); Lymphocytes # 1.4 K/mm3 (0.7-4.5); Lymphocytes % 19.2 % (10-50); Mean Corpuscular HGB Conc 34.1 g/dL (31.8-35.4); Mean Corpuscular Hemoglobin 30.4 pg (27.0-31.2); Mean Corpuscular Volume 89.3 fl (81-99); Mean Platelet Volume 7.4 fl (7.4-10.4); Monocytes # 0.6 K/mm3 (0.1-1.0); Monocytes % 7.9 % (1.7-9.3); Neutrophils # 4.9 K/mm3 (1.8-7.8); Neutrophils % 69.3 % (37.0-80.0); Platelet Count 213 K/mm3 (142-424); Red Blood Count 4.26 M/mm3 (4.20-5.40); Red Cell Distribution Width 12.6 % (11.5-17.5)
[2022-01-20 03:31] LABS: Chloride 96 mmol/L (98-107); Potassium 3.2 mmoL/L (3.5-5.1); Sodium 140 mmol/L (136-145)
[2022-01-20 03:33] LABS: Blood Urea Nitrogen 15 mg/dl (7-17); Creatinine Clearance Estimated 37 mL/min (50-200); Estimated Glomerular Filt Rate 80 ml/min (>60); GFR (African American) 97 ML/MIN (>60)
[2022-01-20 03:34] LABS: Alanine Aminotransferase 13 U/L (12-78); Albumin Level 4.1 g/dl (3.5-5.0); Albumin/Globulin Ratio 1.2 (1.1-1.8); Alkaline Phosphatase 90 U/L (38-126); Anion Gap 9.2 mEq/L (5-15); Aspartate Amino Transferase 24 U/L (14-36); Bilirubin,Total 0.3 mg/dl (0.2-1.3); Carbon Dioxide 38 mmol/L (22.0-30.0); Globulin 3.3 g/dL (1.3-3.2); Glucose 120 mg/dl (74-100); Total Protein,Serum 7.4 g/dl (6.3-8.2)
[2022-01-20 03:35] LABS: Calcium 8.9 mg/dl (8.4-10.2)
[2022-01-20 03:51] LABS: Troponin I < 0.01 ng/ml (0.00-0.034)
[2022-01-20 04:10] LABS: Microscopic, Urine URINE MICROSCOPIC (MICROSCOPIC)
[2022-01-20 04:12] LABS: Appearance,Urine CLEAR (Clear); Bilirubin,Urine Negative (Negative); Blood, Urine TRACE-L (Negative); Color,Urine YELLOW (Yellow); Glucose,Urine (UA) Negative (Negative); Ketones,Urine Negative (Negative); Leukocyte Esterase,Urine 1+ (Negative); Nitrate,Urine POSITIVE (Negative); PH,Urine 8.5 (5.0-8.5); Protein,Urine Negative (Negative); Specific Gravity, Urine 1.015 (1.005-1.030); Urobilinogen,Urine 0.2 EU/dl (0.2)
[2022-01-20 04:44] LABS: Bacteria,Urine 2+ /lpf
--- NOTE | 2022-01-20 05:02 | PC.NURSE ---
Addendum entered by Dale Carlson 01/20/22 07:37: Vitals signs rechecked manually and documented. Original Note: patient would not lay still while monitoring vitals..thats why some of her pressures and 02 sats look out of character.. asked several times to let her know the arm needed to stay straight out.. and for her finger with the pulse ox not to bend her hand with it on
--- NOTE | 2022-01-20 05:12 | HMH.EDFALL ---
ED Disposition Clinical Impression: Mass of left lung Lumbar back sprain Qualifiers: Encounter type: initial encounter Qualified Code(s): S33.5XXA - Sprain of ligaments of lumbar spine, initial encounter UTI (urinary tract infection) Qualifiers: Urinary tract infection type: site unspecified Hematuria presence: without hematuria Qualified Code(s): N39.0 - Urinary tract infection, site not specified COPD (chronic obstructive pulmonary disease) Qualifiers: COPD type: unspecified COPD Qualified Code(s): J44.9 - Chronic obstructive pulmonary disease, unspecified Disposition: Home, Self-Care Condition on Discharge: Fair Instructions: How to Prevent Falls Additional Instructions: resume prev orders Referrals: Greyson Bishop MD [Primary Care Provider] - - Critical Care Critical Care Time: No Attestation: On 01/20/22, the high probability of a clinically significant, sudden or life threatening deterioration of the following system(s) required my full and direct attention, intervention and personal management. The time I documented below is in addition to time spent performing reported procedures but includes the following listed in this critical care notation. Medical Decision Making - Medical Records Medical records reviewed: Yes: I reviewed the patient's medical records. - Stan Inquiry Pt receiving controlled substance: No Vital Signs: 01/20/22 02:39 01/20/22 03:20 01/20/22 03:58 Temperature 98.4 F Temperature Source Oral Pulse Rate 57 L 54 L Pulse Rate [Right] 57 L Respiratory Rate 18 Blood Pressure 119/54 L 115/59 L Blood Pressure [Right Arm] 117/56 L Blood Pressure Mean 75 77 Blood Pressure Mean [Right Arm] 76 02 Sat by Pulse Oximetry 95 96 96 01/20/22 04:01 01/20/22 04:31 01/20/22 05:01 Temperature Temperature Source Pulse Rate 54 L 48 L Pulse Rate [Right] Respiratory Rate Blood Pressure 140/59 L 206/169 H 207/177 H Blood Pressure [Right Arm] Blood Pressure Mean 86 177 187 Blood Pressure Mean [Right Arm] 02 Sat by Pulse Oximetry 96 96 77 L 01/20/22 05:42 Temperature 98.4 F Temperature Source Oral Pulse Rate 56 L Pulse Rate [Right] Respiratory Rate 16 Blood Pressure 116/78 Blood Pressure [Right Arm] Blood Pressure Mean Blood Pressure Mean [Right Arm] 02 Sat by Pulse Oximetry - Lab Data Lab results reviewed: Yes: I reviewed the patient's lab results. Lab Results 01/20/22 03:17: WBC 7.0, RBC 4.26, Hgb 12.9, Hct 38.0, MCV 89.3, MCH 30.4, MCHC 34.1, RDW 12.6, Plt Count 213, MPV 7.4, Neut % (Auto) 69.3, Lymph % (Auto) 19.2, [place] % (Auto) 7.9, Eos % (Auto) 3.1, Baso % (Auto) 0.5, Neut # (Auto) 4.9, Lymph # (Auto) 1.4, [place] # (Auto) 0.6, Eos # (Auto) 0.2, Baso # (Auto) 0.0 01/20/22 03:17: Sodium 140, Potassium 3.2 L, Chloride 96 L, Carbon Dioxide 38 H, Anion Gap 9.2, BUN 15, Creatinine 0.70, Estimated Creat Clear 37, Estimated GFR 80, Est GFR ( Amer) 97, Glucose 120 H, Calcium 8.9, Total Bilirubin 0.3, AST 24, ALT 13, Alkaline Phosphatase 90, Troponin I < 0.01, Total Protein 7.4, Albumin 4.1, Globulin 3.3 H, Albumin/Globulin Ratio 1.2 01/20/22 04:05: Urine Color Yellow, Urine Appearance Clear, Urine pH 8.5, Ur Specific [place] 1.015, Urine Protein Negative, Urine Glucose (UA) Negative, Urine Ketones Negative, Urine Blood Trace-l, Urine Nitrate Positive, Urine Bilirubin Negative, Urine Urobilinogen 0.2, Ur Leukocyte Esterase 1+ A, Urine WBC 5-10, Urine Bacteria 2+ Result diagrams: 01/20/22 03:17 01/20/22 03:17 Orders (Tests/Meds): ORDERS Category Date Time Status Troponin I Q3H Lab 01/20/22 06:00 Ordered Troponin I Q3H Lab 01/20/22 09:00 Ordered Urine Culture Stat Micro 01/20/22 04:05 Received - Radiology Data #1 Image(s): Chest, Pelvis Image Reviewed: Yes I have reviewed radiologist's interpretation Preliminary Findings: No Fracture Seen - CT Data CT Scan: Head, C-Spine, T-Spine, L-Spine Time Received:
--- NOTE | 2022-01-20 05:54 | PC.NURSE ---
called marcella harrington to notified pt would be coming back no acute findings found. also notified edenilson that pt is ready for transport
== END 2022-01-20 06:12 | disposition home or self-care (01) ==
PROVIDERS: Emergency Provider Emergency Medicine; PCP Internal Medicine Adolescent Medicine
DX: R91.8 Other nonspecific abnormal finding of lung field (principal); S33.5XXA Sprain of ligaments of lumbar spine, initial encounter; N39.0 Urinary tract infection, site not specified; J44.9 Chronic obstructive pulmonary disease, unspecified; W19.XXXA Unspecified fall, initial encounter; Z85.118 Personal history of other malignant neoplasm of bronchus and lung; Z79.4 Long term (current) use of insulin; Z79.899 Other long term (current) drug therapy; Z88.0 Allergy status to penicillin; Z88.1 Allergy status to other antibiotic agents; Z88.2 Allergy status to sulfonamides; Z88.8 Allergy status to other drugs, medicaments and biological substances; E11.9 Type 2 diabetes mellitus without complications
CPT/HCPCS: 70450; 71045; 72125; 72128; 72131; 73502; 80053; 81001; 84484; 85025; 87086; 87088; 87186; 93005; 99285

== ENCOUNTER → 2022-02-07 16:34 | Outpatient (CLI) | payer MEDICARE, MEDICAID, SELFPAY ==
[2022-02-07 17:06] LABS: Microscopic, Urine URINE MICROSCOPIC (MICROSCOPIC)
[2022-02-07 17:11] LABS: Appearance,Urine CLOUDY (Clear); Bilirubin,Urine Negative (Negative); Blood, Urine 1+ (Negative); Color,Urine YELLOW (Yellow); Glucose,Urine (UA) Negative (Negative); Ketones,Urine Negative (Negative); Leukocyte Esterase,Urine 2+ (Negative); Nitrate,Urine POSITIVE (Negative); Protein,Urine 2+ (Negative); Urobilinogen,Urine 0.2 EU/dl (0.2)
[2022-02-07 17:21] LABS: PH,Urine >= 9.0 (5.0-8.5)
[2022-02-07 17:29] LABS: Bacteria,Urine 4+ /lpf; Calcium Oxalate Crystals,Urine 2+ /lpf
== END ==
PROVIDERS: PCP Nurse Practitioner Family; Visit Provider Nurse Practitioner Family
DX: B96.4 Proteus (mirabilis) (morganii) as the cause of diseases classified elsewhere (principal); R10.30 Lower abdominal pain, unspecified; N39.0 Urinary tract infection, site not specified
CPT/HCPCS: 81001; 87086; 87088; 87186

== ENCOUNTER 2022-05-17 02:45 | Emergency (ER) | payer MEDICARE, MEDICAID, SELFPAY ==
[2022-05-17 02:45] VITALS: BP 134/73; PULSE 96; RESP 24; O2SAT 89; BMI 16.0
[2022-05-17 03:06] VITALS: BMI 16.1
--- NOTE | 2022-05-17 03:07 | XR_ITS ---
PROCEDURE INFORMATION: Exam: XR Chest Exam date and time: 05/17/2022 3:30 AM Age: 81 years old Clinical indication: Shortness of breath; Additional info: SOA TECHNIQUE: Imaging protocol: Radiologic exam of the chest. Views: 1 view. COMPARISON: CR XR CHEST PORTABLE 01/20/2022 3:19 AM FINDINGS: Lungs: There is a 4 cm mass with shaggy margins of the mid left lung which appears increased in size since 01/20/2022 when it measured approximately 3 cm. No new lung mass is identified. There is mild parenchymal opacification of the right lower lobe which may represent inflammation. Pleural spaces: Blunting of the costophrenic angles bilaterally may represent small effusions scarring. Heart/Mediastinum: The heart size is normal. Bones/joints: No acute finding. Osteopenia. Other findings: The patient is rotated to the right on the study. IMPRESSION: 1. Vague parenchymal opacification right lower lung may represent inflammation. 2. 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
--- NOTE | 2022-05-17 03:07 | CT_ITS ---
PROCEDURE INFORMATION: Exam: CTA Chest With Contrast Exam date and time: 05/17/2022 4:40 AM Age: 81 years old Clinical indication: Shortness of breath and other: Known lung mass; Additional info: SOA known lung mass RO pe TECHNIQUE: Imaging protocol: Computed tomographic angiography of the chest with contrast. 3D rendering (Not supervised by radiologist): MIP and/or 3D reconstructed images were created by the technologist. Radiation optimization: All CT scans at this facility use at least one of these dose optimization techniques: automated exposure control; mA and/or kV adjustment per patient size (includes targeted exams where dose is matched to clinical indication); or iterative reconstruction. Contrast material: ISOVUE 370; Contrast volume: 70 ml; Contrast route: INTRAVENOUS (IV); COMPARISON: PT PET CT Skull Base to [facility] 06/20/2021 10:59 AM FINDINGS: Pulmonary arteries: There is satisfactory opacification of the pulmonary arterial tree. There is no large central pulmonary embolus. Aorta: Unremarkable. No aortic aneurysm. No aortic dissection. Thyroid: 1.5 cm hypodense left thyroid lesion, stable since 06/20/2021. Lungs: There is respiratory motion on the study which degrades imaging of the bilateral lower lobe segmental and subsegmental branches. There are findings suspicious for intraluminal filling defect within a right lower lobe segmental branch (series 1001, image 50). There is adjacent flow suggesting a subacute or chronic embolism. No other convincing findings suspicious for emboli however respiratory motion obscures imaging. There is no dense focal consolidation. There are patchy parenchymal opacities of the right lower lobe suspicious for scarring or subsegmental atelectasis. Inflammation is possible. There is a spiculated mass of the superior left lower lobe measuring 3.9 x 4.1 by 3.6 cm consistent with neoplasm. Subsegmental atelectasis versus scarring left lower lobe. Pleural spaces: There is bilateral apical pleural scarring. No pleural effusion or pneumothorax. Heart: The heart size is normal. No pericardial effusion. Lymph nodes: There are enlarged mediastinal and left hilar lymph nodes. Bones/joints: No acute osseous abnormality. There is exaggeration of the thoracic kyphosis. Soft tissues: Unremarkable. IMPRESSION: 1. Suboptimal study with respiratory motion which degrades imaging in the lower lobes. 2. Findings suspicious for intraluminal filling defect of a segmental branch of the right lower lobe suspicious for embolus, subacute versus chronic. No acute occlusive embolus identified, however respiratory motion degrades imaging in the lower lungs. 3. 4 cm spiculated mass left upper lobe with mediastinal and left hilar lymphadenopathy consist 4. Patchy parenchymal opacities of the right lower lobe suspicious for subsegmental atelectasis. Inflammation is possible.
[2022-05-17 03:21] LABS: Coronavirus 19, PCR Not Detected (NotDetected); Influenza A, PCR Not Detected (NotDetected); Influenza B, PCR Not Detected (NotDetected)
[2022-05-17 03:22] LABS: Basophils % 0.3 % (0.1-2.0); Eosinophils % 0.3 % (0.1-12.0); Hematocrit 40.2 % (37.0-47.0); Hemoglobin 12.9 g/dL (12.2-16.2); Lymphocytes # 0.7 K/mm3 (0.7-4.5); Lymphocytes % 7.8 % (10-50); Mean Corpuscular HGB Conc 32.2 g/dL (31.8-35.4); Mean Corpuscular Hemoglobin 29.4 pg (27.0-31.2); Mean Corpuscular Volume 91.2 fl (81-99); Mean Platelet Volume 8.1 fl (7.4-10.4); Monocytes # 0.6 K/mm3 (0.1-1.0); Monocytes % 6.6 % (1.7-9.3); Neutrophils # 7.8 K/mm3 (1.8-7.8); Platelet Count 323 K/mm3 (142-424); Red Blood Count 4.41 M/mm3 (4.20-5.40); Red Cell Distribution Width 13.6 % (11.5-17.5); White Blood Count 9.2 K/mm3 (4.8-10.8)
--- NOTE | 2022-05-17 03:26 | ECG_ITS ---
APPROVED REPORT Exam: Resting ECG HR:91 bpm ECG Measurements Heart Rate 91 AXES MA 176 P 76 QRSd 76 QRS 78 QT 370 T 46 QTc 419 Conclusion SINUS RHYTHM SEPTAL MYOCARDIAL INFARCTION , PROBABLY OLD [40+ ms Q WAVE IN V1/V2] MODERATE T-WAVE ABNORMALITY, CONSIDER INFERIOR ISCHEMIA [-0.1+ mV T-WAVE IN II/aVF] ABNORMAL ECG UNCONFIRMED REPORT Electronically signed by : Greyson Bishop MD 05/17/2022 08:59:36
[2022-05-17 03:28] LABS: Chloride 103 mmol/L (98-107); Potassium 3.4 mmoL/L (3.5-5.1); Sodium 143 mmol/L (136-145)
[2022-05-17 03:30] LABS: Alanine Aminotransferase 12 U/L (12-78); Alkaline Phosphatase 130 U/L (38-126); Aspartate Amino Transferase 21 U/L (14-36); Bilirubin,Total 0.3 mg/dl (0.2-1.3); Blood Urea Nitrogen 13 mg/dl (7-17); Creatinine Clearance Estimated 31 mL/min (50-200); Estimated Glomerular Filt Rate 96 ml/min (>60); GFR (African American) 116 ML/MIN (>60)
[2022-05-17 03:31] LABS: Albumin Level 4.2 g/dl (3.5-5.0); Anion Gap 14.4 mEq/L (5-15); Carbon Dioxide 29 mmol/L (22.0-30.0); Globulin 4.1 g/dL (1.3-3.2); Glucose 136 mg/dl (74-100); Lactic Acid 1.3 mmol/L (0.7-2.1); Total Protein,Serum 8.3 g/dl (6.3-8.2)
[2022-05-17 03:34] LABS: Magnesium 1.6 mg/dl (1.6-2.3)
[2022-05-17 03:35] LABS: MANUAL DIFFERENTIAL MANUAL DIFFERENTIAL (MANUAL DIFF)
[2022-05-17 03:36] LABS: C-Reactive Protein 254.5 mg/L (0-4); Lymphocytes % 9 % (10-50); Monocytes % 2 % (2-9); Neutrophils % 79 % (42-76); Platelet Estimate Normal; RBC Morphology Normal; Total Cells Counted 100
[2022-05-17 03:48] LABS: Troponin I < 0.01 ng/ml (0.00-0.034)
[2022-05-17 03:51] LABS: Erythrocyte Sedimentation Rate 94 mm/hr (0-30)
--- NOTE | 2022-05-17 04:11 | [facility].EDSOB ---
Discharge Plan Disposition Patient Disposition: er [facility] Chief Complaint: Shortness of Breath/Dyspnea Prescriptions Prescriptions: No Action budesonide-formoterol 10.2 GM HFA aerosol inhaler 2 puffs IH BID ipratropium-albuterol 120 PUFF mist 1 puff IH QID potassium chloride 10 MEQ tablet extended release 10 meq PO TID omeprazole 20 MG capsule,delayed release(DR/EC) 20 mg PO BID fluoxetine 40 MG capsule 40 mg PO DAILY furosemide 80 MG tablet 120 mg PO DAILY dicyclomine 20 MG tablet 20 mg PO ACHS memantine 10 MG tablet 10 mg PO DAILY insulin regular human 100 UNIT/ML solution 0 unit SQ DIRECTED Rx Instructions: SSI albuterol sulfate 8.5 GM HFA aerosol inhaler 2 puffs IH Q4HP PRN (Reason: Shortness Of Breath) oxybutynin chloride 5 MG tablet 5 mg PO BID ciprofloxacin HCl 250 MG tablet 250 mg PO BID Label Comments: TAKE 1 TABLET EVERY 12 HOURS FOR 10 DAYS hydrocodone-acetaminophen 1 EACH tablet 1 tab PO BID fentanyl 25 MCG/PATCH patch 72 hour 25 mcg TD Q72H gabapentin 600 MG tablet 600 mg PO TID diazepam 5 MG tablet 5 mg PO BID Referrals Follow up/Referrals: Greyson Bishop MD [Primary Care Provider] - See instructions Clinical Impressions Clinical Impression: Acute exacerbation of chronic obstructive airways disease, Mass of left lung, Pulmonary embolism, Bronchitis Instructions Patient Instructions: DI for Shortness of Breath Discharge ED Provider: Oswaldo Jin Resp/SOB HPI General Chief Complaint: Shortness of Breath/Dyspnea Stated Complaint: SOA, cough Time Seen by Provider: 05/17/22 04:11 Mode of Arrival: EMS Source of Information: Patient, EMS and Medical Record Limitations: Altered Mental Status Description of Symptoms (Recalled from ER Triage Doc. by RN): Pt c/o not feeling well , cough, body aches, and increased SOA. Per retirement, pt has been having a cough, congestion, and SOA for several days but was not compliant to treatments offered. Trupti pt requested to come to the ER for treatment so [facility] stated if she wanted to come to ER she must be feeling bad . [facility] gave cough suppressant an tylenol [employer]. History of Present Illness cough and sob at [facility] - hx of lung cancer MD Complaint: shortness of breath and cough Onset (ago): day(s) Severity: moderate Consistency/Duration: intermittent Associated symptoms: denies other symptoms Treatment prior to arrival: oxygen Related Data Home oxygen amount: none Home Medications Medication Instructions Recorded Confirmed budesonide-formoterol HFA 160 2 puffs IH BID COPD 05/09/21 01/20/22 mcg-4.5 mcg/actuation aerosol inhaler dicyclomine 20 mg tablet 20 mg PO ACHS IBS 05/09/21 01/20/22 fluoxetine 40 mg capsule 40 mg PO DAILY MOOD 05/09/21 01/20/22 furosemide 80 mg tablet 120 mg PO DAILY Fluid 05/09/21 01/20/22 insulin regular human 100 unit/mL 0 unit SQ DIRECTED Diabetes 05/09/21 01/20/22 injection solution ipratropium 20 mcg-albuterol 100 1 puff IH QID COPD 05/09/21 01/20/22 mcg/actuation mist for inhalation memantine 10 mg tablet 10 mg PO DAILY Dementia 05/09/21 01/20/22 omeprazole 20 mg capsule,delayed 20 mg PO BID GERD 05/09/21 01/20/22 release potassium chloride 10 mEq 10 meq PO TID Supplement 05/09/21 01/20/22 tablet,extended release albuterol sulfate 90 mcg/actuation 2 puffs IH Q4HP PRN Shortness Of 05/10/21 01/20/22 aerosol inhaler Breath oxybutynin chloride 5 mg tablet 5 mg PO BID BLADDER 05/10/21 01/20/22 ciprofloxacin HCl 250 mg tablet 250 mg PO BID Infection 01/20/22 01/20/22 diazepam 5 mg tablet 5 mg PO BID Anxiety 01/20/22 01/20/22 fentanyl 25 mcg/hr transdermal 25 mcg transdermal Q72H Pain 01/20/22 01/20/22 patch gabapentin 600 mg tablet 600 mg PO TID Pain 01/20/22 01/20/22 hydrocodone 7.5 mg-acetaminophen 1 tab PO BID Pain 01/20/22 01/20/22 325 mg tablet Allergies Yash
[2022-05-17 05:02] VITALS: BP 137/59; PULSE 88; RESP 23; TEMP 36.7; O2SAT 97
== END 2022-05-17 05:49 ==
PROVIDERS: Emergency Provider Emergency Medicine; PCP Internal Medicine Adolescent Medicine
DX: J44.1 Chronic obstructive pulmonary disease with (acute) exacerbation (principal); J40 Bronchitis, not specified as acute or chronic; I26.99 Other pulmonary embolism without acute cor pulmonale; R91.8 Other nonspecific abnormal finding of lung field
CPT/HCPCS: 71045; 71275; 80053; 83605; 83735; 84484; 85007; 85025; 85651; 86140; 87040; 93005; 96365; 96375; 99285; C9803; J0696; Q9967; U0003; U0005